=== PATIENT | female | born 1985 | race Caucasian/White ===

== ENCOUNTER 2016-12-30 13:47 | Outpatient (CLI) | payer BC | END 2016-12-30 17:33 | disposition home or self-care (01) | LOC: GENOP 13:47 | DX: O26.893 Other specified pregnancy related conditions, third trimester (principal); N89.8 Other specified noninflammatory disorders of vagina; Z3A.33 33 weeks gestation of pregnancy | CPT/HCPCS: 81001; 82731; 87077; 87086; 87186; G0463 ==

== ENCOUNTER 2017-02-01 22:55 | Inpatient (IN) | payer BC ==
[~2017-02-01] VITALS: Ht 165.1 cm; Wt 104.3 kg
[2017-02-02 00:25] LABS: HEMOGLOBIN 12.7 gm/dl (12.3-15.3); RED BLOOD COUNT 4.1 M/UL (4.00-5.10); WHITE BLOOD COUNT 13.6 K/UL (4.5-11.0)
[2017-02-03 03:18] LABS: HEMOGLOBIN 10.4 gm/dl (12.3-15.3)
[2017-02-04] MEDS ORDERED: COLACE 100MG C100 MG PO (10:25)
== END 2017-02-04 11:39 | disposition home or self-care (01) | DRG 765 ==
LOC: GENOP 22:55 → OB 23:54
PROVIDERS: ADMIT Obstetrics & Gynecology
PROC: 10D00Z1 Extraction of Products of Conception, Low, Open Approach (ICD-10-PCS; principal; 2017-02-02 02:35)
PROC: 3E0234Z Introduction of Serum, Toxoid and Vaccine into Muscle, Percutaneous Approach (ICD-10-PCS; 2017-02-03)
DX: O76 Abnormality in fetal heart rate and rhythm complicating labor and delivery (principal); O45.93 Premature separation of placenta, unspecified, third trimester; Z3A.37 37 weeks gestation of pregnancy; Z37.0 Single live birth; Z23 Encounter for immunization
CPT/HCPCS: 36415; 81001; 82800; 85014; 85018; 85025; 90715; C9113; J0690; J2405; J2590; J2765; J2795; J3010; J3105; J3430; J7120